=== PATIENT | female | born 1985 | race Caucasian/White ===

== ENCOUNTER 2023-06-13 | Emergency (ER) | payer MEDICAID ==
[~2023-06-13] VITALS: Ht 167.6 cm; Wt 75.0 kg
[2023-06-13 00:38] VITALS: TEMP 98.9
[2023-06-13] MEDS ORDERED: FLUORESCEIN SODIUM 1 MG STRIP OS ONE (01:30)
[2023-06-13] MEDS ORDERED: DiphenhydrAMINE HCL 25 MG CAPSULE PO ONE (01:30)
[2023-06-13] MEDS ORDERED: PROPARACAINE HCL 0.5% 15 ML OPHTHALMIC SOLUTION OS ONE (01:30)
[2023-06-13] MEDS ORDERED: TOBRAMYCIN/DEXAMETHASONE 5 ML OPHTHALMIC SUSPENSION OS ONE (01:30)
[2023-06-13 02:16] VITALS: BP 122/72; PULSE 64; RESP 16
== END 2023-06-13 02:26 | disposition home or self-care (01) ==
LOC: EMS 00:01
DX: S05.02XA Injury of conjunctiva and corneal abrasion without foreign body, left eye, initial encounter (principal); H10.89 Other conjunctivitis; F17.210 Nicotine dependence, cigarettes, uncomplicated; F12.90 Cannabis use, unspecified, uncomplicated; X58.XXXA Exposure to other specified factors, initial encounter; Y93.89 Activity, other specified; Y92.89 Other specified places as the place of occurrence of the external cause; Y99.8 Other external cause status
CPT/HCPCS: 99283

== ENCOUNTER 2023-11-04 08:43 | Emergency (ER) | payer MEDICAID ==
[~2023-11-04] VITALS: Ht 167.6 cm; Wt 76.0 kg
[2023-11-04 08:46] VITALS: TEMP 98
[2023-11-04 09:15] LABS: BASOPHILS % (AUTO) 0.8 % (0.0-2.0); EOSINOPHILS % (AUTO) 4.4 % (1.0-6.0); HEMATOCRIT 41.1 % (36-46); HEMOGLOBIN 14.1 g/dL (12.0-16.0); LYMPHOCYTES # (AUTO) 2.2 K/uL (1.0-4.8); LYMPHOCYTES % (AUTO) 31.8 % (22.0-44.0); MEAN CORPUSCULAR HEMOGLOBIN 35.1 pg (26.0-34.0); MEAN CORPUSCULAR HGB CONC 34.4 G/dL (31.0-37.0); MEAN CORPUSCULAR VOLUME 102 fL (80-100); MONOCYTES # (AUTO) 0.4 K/uL (0.1-1.0); MONOCYTES % (AUTO) 5.9 % (2.0-9.0); NEUTROPHILS % (AUTO) 57.1 % (40.0-70.0); PLATELET COUNT (AUTO) 237 K/uL (150-450); RED BLOOD CELL COUNT(AUTO) 4.03 MIL/uL (4.00-5.20); RED CELL DISTRIBUTION WIDTH 13.2 % (11.5-14.5)
[2023-11-04 09:16] LABS: RBC MORPHOLOGY COMMENT ABNORMAL RBC MORPH
[2023-11-04 09:28] LABS: ANION GAP 9 mmol/L (8-16); CALCIUM, TOTAL 8.5 mg/dL (8.8-10.5); CARBON DIOXIDE 25 mmol/L (22-29); CHLORIDE 109 mmol/L (98-107); CREATININE 0.76 mg/dL (0.60-1.30); GLOMERULAR FILTR. RATE CALC > 60 mL/min (>60); GLUCOSE,RANDOM 127 mg/dL (70-110); POTASSIUM 3.9 mmol/L (3.5-5.1); SODIUM SERUM 143 mmol/L (136-145); UREA NITROGEN, BLOOD 9 mg/dL (7-18)
[2023-11-04] MEDS ORDERED: KETOROLAC TROMETHAMINE 30 MG/ML VIAL IVP ONE (09:30)
[2023-11-04] MEDS ORDERED: ACETAMINOPHEN 500 MG TABLET PO ONE (09:30)
[2023-11-04 09:36] LABS: ALANINE AMINOTRANSFERASE 29 U/L (12-78); ALBUMIN 3.1 g/dL (3.4-5.0); ALKALINE PHOSPHATASE 52 U/L (46-116); ASPARTATE AMINOTRANSFERASE 26 U/L (15-37); BILIRUBIN,TOTAL 0.4 mg/dL (0.1-1.0); LIPASE 35 U/L (16-77); TOTAL PROTEIN, SERUM 5.7 g/dL (6.4-8.2)
[2023-11-04] MEDS ORDERED: SODIUM CHLORIDE 0.9% 100 ML ONE (09:38)
[2023-11-04] MEDS ORDERED: IOHEXOL 350 MG/ML 100 ML VIAL ONE (09:38)
[2023-11-04 10:46] LABS: APPEARANCE,URINE HAZY (CLEAR); BILIRUBIN,URINE NEGATIVE (NEGATIVE); COLOR,URINE YELLOW (YELLOW); GLUCOSE, URINE (UA) NEGATIVE (NEGATIVE); KETONES,URINE NEGATIVE (NEGATIVE); LEUKOCYTE ESTERASE ,URINE NEGATIVE (NEGATIVE); NITRATE,URINE POSITIVE (NEGATIVE); OCCULT BLOOD,URINE NEGATIVE (NEGATIVE); PROTEIN,URINE TRACE mg/dL (NEGATIVE); SPECIFIC GRAVITIY, URINE 1.016 (1.003-1.030); UROBILINOGEN,URINE <=1.0 mg/dL (<=1.0)
[2023-11-04 11:17] LABS: BACTERIA,URINE Many /HPF (None Seen); RBC,URINE None Seen /HPF (0-2); SQUAMOUS EPITHELIAL CELL,UR Few /LPF (None Seen)
[2023-11-04] MEDS ORDERED: MORPHINE SULFATE 2 MG/ML SYRINGE IVP ONE (12:45)
[2023-11-04 12:59] VITALS: BP 126/72; PULSE 72; RESP 18
[2023-11-04] MEDS ORDERED: SODIUM PHOSPHATE,MONO-DIBASIC 133 ML ENEMA PR ONE (13:00)
[2023-11-04] MEDS ORDERED: DOCUSATE SODIUM 100 MG CAPSULE PO ONE (13:00)
[2023-11-04] MEDS ORDERED: CEPHALEXIN MONOHYDRATE 500 MG CAPSULE PO ONE (13:15)
[2023-11-04] MEDS ORDERED: DOCU-385 PO (13:16)
[2023-11-04] MEDS ORDERED: ACET-3385 PO (13:16)
[2023-11-04] MEDS ORDERED: CEPH-558 PO (13:16)
== END 2023-11-04 13:51 | disposition home or self-care (01) ==
LOC: EMS 08:43
DX: N39.0 Urinary tract infection, site not specified (principal); K59.00 Constipation, unspecified; R10.33 Periumbilical pain; F17.210 Nicotine dependence, cigarettes, uncomplicated; F12.90 Cannabis use, unspecified, uncomplicated
CPT/HCPCS: 99285; 74177; 96374; 96375; 80053; 81001; 83690; 84703; 85025; 36415; 87086; 87186; J1885; J2270; Q9967; J7050

== ENCOUNTER 2025-07-25 09:02 | Emergency (ER) | payer MEDICAID ==
[~2025-07-25] VITALS: Ht 167.6 cm; Wt 81.0 kg
[~2025-07-25 09:02] MED LIST: ACET-3385 PO; CEPH-558 PO; DOCU-385 PO
[2025-07-25 09:19] VITALS: TEMP 97.5
[2025-07-25 09:25] VITALS: BP 113/69; PULSE 64; RESP 16; O2SAT 98
[2025-07-25] MEDS ORDERED: PERM60CR21 TP (10:45)
[2025-07-25] MEDS ORDERED: CLOB15CR10 TP (10:45)
[2025-07-25] MEDS ORDERED: DIPH50CA37 PO (10:45)
== END 2025-07-25 10:57 | disposition home or self-care (01) ==
LOC: EMS 09:04
DX: L30.9 Dermatitis, unspecified (principal); L29.9 Pruritus, unspecified; F12.90 Cannabis use, unspecified, uncomplicated; F17.210 Nicotine dependence, cigarettes, uncomplicated; Z79.899 Other long term (current) drug therapy
CPT/HCPCS: 99283; Z7502